=== PATIENT | male | born 1985 | race Caucasian/White ===

== ENCOUNTER 2016-04-11 14:06 | Emergency (ER) | payer OTHER ==
[2016-04-11 14:10] VITALS: TEMP 97.7; O2SAT 98
[2016-04-11] MEDS ORDERED: HYDROCODONE/APAP 5/325 TAB PO ONE (14:16)
[2016-04-11] MEDS ORDERED: IBUPROFEN 600 MG TAB PO ONE (14:16)
--- NOTE | 2016-04-11 14:33 | EDPHY ---
H & P Stated Complaint: coughed and felt a rib "pop" Time Seen by Provider: 04/11/16 14:17 HPI/ROS: CHIEF COMPLAINT: Rib pain, cough HISTORY OF PRESENT ILLNESS: Patient is a 31-year-old man who comes to the emergency department complaining of right-sided rib pain. he states that he has had a cough for the last few days and today was coughing violently when he felt a pop and had right-sided rib pain. It hurts to touch or breathe deeply or twist. He has not had a fever. Has had mild sinus congestion but states that this is chronic. He does smoke. REVIEW OF SYSTEMS: Constitutional: denies: chills, fever, recent illness, recent injury EENTM: denies: blurred vision, double vision, nose congestion Respiratory: See HPI Cardiac: denies: chest pain, irregular heart rate, lightheadedness, palpitations Gastrointestinal/Abdominal: denies: abdominal pain, diarrhea, nausea, vomiting, blood streaked stools Genitourinary: denies: dysuria, frequency, hematuria, pain Musculoskeletal: denies: joint pain, muscle pain Skin: denies: lesions, rash, jaundice, bruising Neurological: denies: headache, numbness, paresthesia, tingling, dizziness, weakness Hematologic/Lymphatic: denies: blood clots, easy bleeding, easy bruising Immunologic/allergic: denies: HIV/AIDS, transplant EXAM: GENERAL: Well-appearing, well-nourished and in no acute distress. HEAD: Atraumatic, normocephalic. EYES: Pupils equal round and reactive to light, extraocular movements intact, sclera anicteric, conjunctiva are normal. ENT: TMs normal, nares patent, oropharynx clear without exudates. Moist mucous membranes. NECK: Normal range of motion, supple without lymphadenopathy or JVD. LUNGS: Breath sounds clear to auscultation bilaterally and equal. No wheezes rales or rhonchi. Exquisite tenderness to palpation of right ribs. HEART: Regular rate and rhythm without murmurs, rubs or gallops. ABDOMEN: Soft, nontender, normoactive bowel sounds. No guarding, no rebound. No masses appreciated. BACK: No CVA tenderness, no spinal tenderness, step-offs or deformities EXTREMITIES: Normal range of motion, no pitting or edema. No clubbing or cyanosis. NEUROLOGICAL: Cranial nerves II through XII grossly intact. Normal speech, normal gait. 5/5 strength, normal movement in all extremities, normal sensation PSYCH: Normal mood, normal affect. SKIN: Warm, dry, normal turgor, no visible rashes or lesions. Source: Patient Exam Limitations: No limitations - Personal History Current Tetanus/Diphtheria Vaccine: Yes Current Tetanus Diphtheria and Acellular Pertussis (TDAP): Yes Tetanus Vaccine Date: 2014 - Medical/Surgical History Hx Asthma: No Hx Chronic Respiratory Disease: No Hx Diabetes: No Hx Cardiac Disease: No Hx Renal Disease: No Hx Cirrhosis: No Hx Alcoholism: No Hx HIV/AIDS: No Hx Splenectomy or Spleen Trauma: No Other PMH: denies - Family History Significant Family History: No pertinent family hx - Social History Smoking Status: Heavy smoker Alcohol Use: Sober Drug Use: None Constitutional: Initial Vital Signs Temperature (C) 36.5 C 04/11/16 14:07 Heart Rate 90 04/11/16 14:07 Respiratory Rate 24 H 04/11/16 14:07 Blood Pressure 152/81 H 04/11/16 14:07 O2 Sat (%) 98 04/11/16 14:07 O2 Delivery Mode Room Air Allergies/Adverse Reactions: Penicillins Allergy (Intermediate, Verified 04/11/16 14:10) Unknown Home Medications: Medication Instructions Recorded AZITHROMYCIN [Z-PACK] 250 mg PO DAILY #4 tab 04/11/16 Hydrocodone/APAP 5/325 [[place] 1 - 2 each PO Q4 PRN #14 tab 04/11/16 5/325] Medical Decision Making - Diagnostics Imaging: X-ray: chest x-ray was obtained. I viewed the images myself on the PACS system. My interpretation of the images is: Consistent with bronchitis. The radiologist interpretation is pending. ED Course/Re-evaluation: 2:30 p.m. we discussed the patient's x-ray results. I will start him on azithromycin. He has been given pain medication by nursing protocol. We discussed the differential diagnosis. We discussed possible additional workup. Patient and I agree that this is primarily musculoskeletal appearing. It hurts with movement and exquisitely with palpation. It began with violent coughing. I believe the likelihood of pulmonary embolism is low. No pneumothorax seen on chest x-ray. He declines further workup or testing at this time. If he does not improve he will return. Differential Diagnosis: Partial list of the Differential diagnosis considered include but were not limited to; muscle strain, rib fracture, pneumothorax, bronchitis, pneumonia and although unlikely based on the history and physical exam, I also considered PE, acute coronary disease, trauma. I discussed these differential diagnoses and the plan with the patient as well as the usual and expected course. The patient understands that the diagnosis is provisional and that in medicine we are not always correct and that further workup is often warranted. Usual and customary warnings were given. All of the patient's questions were answered. The patient was instructed to return to the emergency department should the symptoms at all worsen or return, otherwise to followup with the physician as we discussed. - Data Points Medications Given: Discontinued Medications Acetaminophen/Hydrocodone Bitart ([place] 5/325) 1 tab PO EDNOW ONE Stop: 04/11/16 14:17 Last Admin: 04/11/16 14:24 Dose: 1 tab Azithromycin (Zithromax) 500 mg PO EDNOW ONE PRN Reason: Protocol Stop: 04/11/16 14:38 Last Admin: 04/11/16 14:49 Dose: 500 mg Ibuprofen (Motrin) 600 mg PO EDNOW ONE Stop: 04/11/16 14:17 Last Admin: 04/11/16 14:24 Dose: 600 mg Departure - Departure Disposition: Home, Routine, Self-Care Clinical Impression: Acute bronchitis Qualifiers: Bronchitis organism: unspecified organism Qualifier Code: (J20.9) Acute bronchitis, unspecified Condition: Fair Instructions: Acute Bronchitis (ED), Hydrocodone/Acetaminophen (By mouth), Azithromycin (By mouth) Referrals: NONE *PRIMARY CARE P,. [Primary Care Provider] - As per Instructions Juan David Morales DO [Doctor of Osteopathy] - As per Instructions Prescriptions: Hydrocodone/APAP 5/325 [[place] 5/325] 1 - 2 each PO Q4 PRN #14 tab PRN Reason: Pain, Mild AZITHROMYCIN [Z-PACK] 250 mg PO DAILY #4 tab
[2016-04-11] MEDS ORDERED: AZITHROMYCIN 250 MG TAB PO ONE (14:37)
[2016-04-11 14:50] VITALS: BP 132/76; PULSE 82; RESP 20
--- NOTE | 2016-04-11 15:16 | DX ---
PA and Lateral Chest History: Chest pain and Shortness of breath in a 31-year-old male; no previous studies are available for comparison. Findings: The heart and mediastinum are normal. Pulmonary vascularity is normal. The lungs are clear. There is no pleural fluid. A pneumothorax is not identified. Impression: No significant radiographic abnormality. Specifically, a source for chest pain is not santos ntified.
== END 2016-04-11 14:50 | disposition home or self-care (01) ==
DX: J20.9 Acute bronchitis, unspecified (principal); F17.200 Nicotine dependence, unspecified, uncomplicated